=== PATIENT | female | born 1985 | race Hispanic/Latino ===

== ENCOUNTER 2017-03-16 08:32 | Outpatient (CLI) | payer OTHER ==
--- NOTE | 2017-03-16 10:36 | MRI ---
LEFT LOWER EXTREMITY MRI WITH AND WITHOUT IV CONTRAST: HISTORY: A 32-year-old female with a history of a palpable finding on the anterior aspect of the right ankle a nd lower leg. Multiplanar, multisequence MRI examination of the ankle is performed. There is a 0.3 x 0.8 cm in marlo meter focal, circumscribed, T1 hypointense, T2 hyperintense, enhancing focus noted in the anterior leslie perficial subcutaneous tissues of the anterior lower leg/upper ankle, overlying the extensor tendons. This does not appear to be part of the tendons. The visualized flexor, extensor, and peroneus tend ons appear intact. The visualized medial and lateral collateral ligament complexes are unremarkable. The Achilles tendon and plantar fascia are unremarkable. No talar dome osteochondral lesion. The sinus tarsi and spring ligament regions are unremarkable. IMPRESSION: Small, circumscribed, minimally enhancing soft tissue nodule in the superficial subcutaneous fat, cor responding to the palpable finding overlying the extensor tendons but does not appear to be directly associated with them. Given the small size, additional further characterization is very limited. Th is appears to be amenable to surgical excision, or another option would be to follow this clinically, since it should be easily palpated and, if it grows, consider excision at that time. No evidence fo r other significant acute internal derangement. POS: CHIKIS
[2017-03-16] MEDS ORDERED: Gadobenate Dimeglumine 529 MG/1 ML (20ML VIAL) ONE (15:49)
== END 2017-03-16 08:33 | disposition home or self-care (01) ==
LOC: MRI 08:32
PROVIDERS: ATTEND Family Medicine
DX: M79.89 Other specified soft tissue disorders (principal)
CPT/HCPCS: A9579

== ENCOUNTER 2017-05-11 08:32 | Outpatient (CLI) | payer OTHER ==
--- NOTE | 2017-05-11 10:05 | MMO ---
BILATERAL SCREENING MAMMOGRAMS: Comparison: None. Baseline exam. This study is interpreted with the assistance of computer aided detection. FINDINGS: There is a heterogeneously dense glandular pattern. There is asymmetric density in the upper outer right breast with some questionable distortion. Recomm end patient return for spot compression views of this region. IMPRESSION: BIRADS 0 - incomplete exam. Further imaging right breast required. POS: CHIKIS
== END 2017-05-11 08:33 | disposition home or self-care (01) ==
LOC: SCSMAMMO 08:32
PROVIDERS: ATTEND Family Medicine
DX: Z12.31 Encounter for screening mammogram for malignant neoplasm of breast (principal); Z80.3 Family history of malignant neoplasm of breast
CPT/HCPCS: 77067

== ENCOUNTER 2017-07-01 08:08 | Outpatient (CLI) | payer OTHER | END 2017-07-01 08:09 | disposition home or self-care (01) | LOC: BICMAMMO 08:08 | PROVIDERS: ATTEND Family Medicine | DX: R92.8 Other abnormal and inconclusive findings on diagnostic imaging of breast (principal); Z80.3 Family history of malignant neoplasm of breast | CPT/HCPCS: G0279 ==

== ENCOUNTER 2019-02-05 09:43 | Outpatient (CLI) | payer OTHER ==
--- NOTE | 2019-02-05 10:36 | MMO ---
Bilateral MAMMO Bilat Diag [facility]. CLINICAL HISTORY: Patient is 33 years old and is seen for diagnostic exam. The patient has the following family history of breast cancer: sister, at age 32. The patient has no personal history of cancer. VIEWS: The views performed were: bilateral craniocaudal with tomosynthesis; bilateral mediolateral oblique with tomosynthesis; and bilateral mediolateral with tomosynthesis. FILMS COMPARED: The present examination has been compared to prior imaging studies performed at [facility] on 05/11/2017, and at [facility] on 07/01/2017 and 02/05/2019. This study has been interpreted with the assistance of computer-aided detection. MAMMOGRAM FINDINGS: The breasts are heterogeneously dense, which could obscure a lesion on mammography. There are no suspicious masses, suspicious calcifications, or new areas of architectural distortion. There are no mammographic or sonographic abnormalities in the area of palpable concern. The patient is referred back to her clinician. Negative imaging findings should not preclude biopsy if clinical findings are suspicious. IMPRESSION: THERE IS NO MAMMOGRAPHIC EVIDENCE OF MALIGNANCY. THE RESULTS OF THIS EXAM WERE SENT TO THE PATIENT. ACR BI-RADS Category 1 - Negative MAMMOGRAPHY NOTE: 1. A negative mammogram report should not delay a biopsy if a dominant of clinically suspicious mass is present. 2. Approximately 10% to 15% of breast cancers are not detected by mammography. 3. Adenosis and dense breasts may obscure an underlying neoplasm. Reported by: STEPHANIE KAHN MD Electonically Signed: [id number]
--- NOTE | 2019-02-05 10:49 | ULT ---
LIMITED RIGHT BREAST ULTRASOUND: 02/05/2019 PROVIDED CLINICAL HISTORY: Right breast palpable abnormality. FINDINGS: Limited sonographic interrogation was performed of the right breast at the 10 o'clock position in the region of reported palpable concern. Simple appearing cysts are seen in this region, the largest of which measures about 8 mm. No concerni ng findings are evident. IMPRESSION: No concerning sonographic findings are evident in the region of palpable concern. Negative or benign imaging findings should not preclude further evaluation of a clinically suspicious area. The patient is referred back to her clinician. BI-RADS category 2 -benign findings. POS: OFF
== END 2019-02-05 09:44 | disposition home or self-care (01) ==
LOC: BICMAMMO 09:43
PROVIDERS: ATTEND Family Medicine
DX: N63.11 Unspecified lump in the right breast, upper outer quadrant (principal); Z80.3 Family history of malignant neoplasm of breast
CPT/HCPCS: 77066; G0279

== ENCOUNTER 2021-09-10 15:53 | Emergency (ER) | payer OTHER | END 2021-09-10 16:40 | disposition home or self-care (01) | LOC: ERS 15:53 | DX: G51.0 Bell's palsy (principal) | CPT/HCPCS: 99283 ==